=== PATIENT | female | born 1945 | race Two or more races ===

== ENCOUNTER 2018-01-28 07:29 | Inpatient (IN) | payer OTHER ==
[~2018-01-28] VITALS: Ht 160 cm; Wt 79.4 kg
== END 2018-02-10 13:19 | disposition home or self-care (01) | DRG 330 ==
LOC: ER 07:29 → SURH 11:16 → SURG 11:16 → EDBD 11:16 → SURH 01-31 18:11
PROVIDERS: Colon & Rectal Surgery
PROC: BW21ZZZ Computerized Tomography (CT Scan) of Abdomen and Pelvis (ICD-10-PCS; 2018-01-28)
PROC: 30233N1 Transfusion of Nonautologous Red Blood Cells into Peripheral Vein, Percutaneous Approach (ICD-10-PCS; 2018-01-28)
PROC: 0DJD4ZZ Inspection of Lower Intestinal Tract, Percutaneous Endoscopic Approach (ICD-10-PCS; 2018-01-31)
PROC: 07TC0ZZ Resection of Pelvis Lymphatic, Open Approach (ICD-10-PCS; 2018-01-31)
PROC: 0DTK0ZZ Resection of Ascending Colon, Open Approach (ICD-10-PCS; principal; 2018-01-31 07:00)
PROC: 4A033R1 Measurement of Arterial Saturation, Peripheral, Percutaneous Approach (ICD-10-PCS; 2018-02-01)
PROC: 4A12X4Z Monitoring of Cardiac Electrical Activity, External Approach (ICD-10-PCS; 2018-02-01)
PROC: 3E0336Z Introduction of Nutritional Substance into Peripheral Vein, Percutaneous Approach (ICD-10-PCS; 2018-02-03)
PROC: BW21ZZZ Computerized Tomography (CT Scan) of Abdomen and Pelvis (ICD-10-PCS; 2018-02-04)
PROC: 02HV33Z Insertion of Infusion Device into Superior Vena Cava, Percutaneous Approach (ICD-10-PCS; 2018-02-04)
DX: C18.2 Malignant neoplasm of ascending colon (principal); K92.2 Gastrointestinal hemorrhage, unspecified; K91.31 Postprocedural partial intestinal obstruction; D50.0 Iron deficiency anemia secondary to blood loss (chronic)

== ENCOUNTER 2020-09-20 05:40 | Day surgery (SDC) | payer OTHER | END 2020-09-20 10:05 | disposition home or self-care (01) | LOC: AMB-ENDOS 05:40 | PROVIDERS: ATTEND Colon & Rectal Surgery | DX: K62.89 Other specified diseases of anus and rectum (principal); K64.8 Other hemorrhoids; Z12.11 Encounter for screening for malignant neoplasm of colon; Z20.828 Contact with and (suspected) exposure to other viral communicable diseases ==

== ENCOUNTER 2022-10-02 06:46 | Day surgery (SDC) | payer OTHER | END 2022-10-02 12:30 | disposition home or self-care (01) | LOC: AMB-ENDOS 06:46 | PROVIDERS: ATTEND Colon & Rectal Surgery | DX: D12.3 Benign neoplasm of transverse colon (principal); Z88.0 Allergy status to penicillin; Z88.2 Allergy status to sulfonamides; Z88.6 Allergy status to analgesic agent; Z91.041 Radiographic dye allergy status; K64.8 Other hemorrhoids ==